=== PATIENT | male | born 1990 | race Caucasian/White ===

== ENCOUNTER 2025-01-17 07:28 | Emergency (ER) | payer OTHER ==
[2025-01-17 07:52] VITALS: RESP 18; BMI 42.7
[2025-01-17] MEDS ORDERED: METOCLOPRAMIDE HCL INJECTION 10 MG/2 ML VIAL ONE (08:52)
[2025-01-17] MEDS ORDERED: ACETAMINOPHEN INJECTION 100 ML ONE (08:53)
[2025-01-17 08:55] LABS: MCHC 32.5 g/dl (32.3-36.5); MEAN CELL VOLUME 82.9 fl (79.0-92.2); MEAN PLT VOLUME 9.7 fl (9.4-12.4); RDW 12.9 % (12.0-15.6)
[2025-01-17] MEDS: ACETAMINOPHEN 1000 MG/100 ML BAG IVPB ONE (09:00)
[2025-01-17 09:06] LABS: COCAINE, UR NEGATIVE (NEGATIVE)
[2025-01-17] MEDS: METOCLOPRAMIDE HCL INJECTION 10 MG/2 ML VIAL IVPB ONE (09:06)
[2025-01-17 09:07] LABS: METHADONE, UR NEGATIVE (NEGATIVE); OPIATES, URI NEGATIVE (NEGATIVE); PHENCYCLIDINE,URINE NEGATIVE (NEGATIVE); URINE AMPHETAMINES NEGATIVE (NEGATIVE); URINE BARBITURATES NEGATIVE (NEGATIVE); URINE BENZODIAZEPINES NEGATIVE (NEGATIVE)
[2025-01-17] MEDS: LACTATED RINGERS SOLUTION 1000 ML INFUS.BAG IV ONE (09:13)
[2025-01-17 09:23] LABS: GLUCOSE,RANDOM 117.0 mg/dL (74-106)
[2025-01-17 09:24] LABS: CO2 25.0 mmol/L (21-32); TOT PROT 7.1 g/dl (6.4-8.2)
[2025-01-17 09:26] LABS: ALK PHOS 73.0 U/L (40-150)
[2025-01-17 09:29] LABS: CREATININE 0.94 mg/dL (0.55-1.3); SGOT/AST 131.0 U/L (5-34); SGPT/ALT 85.0 U/L (0-55)
[2025-01-17 11:50] VITALS: BP 113/52; PULSE 69; TEMP 98.1
== END 2025-01-17 13:15 | disposition home or self-care (01) ==
LOC: JER 07:28
PROC: 3E033NZ Introduction of Analgesics, Hypnotics, Sedatives into Peripheral Vein, Percutaneous Approach (ICD-10-PCS; principal; 2025-01-17)
PROC: 3E033GC Introduction of Other Therapeutic Substance into Peripheral Vein, Percutaneous Approach (ICD-10-PCS; 2025-01-17)
DX: G43.909 Migraine, unspecified, not intractable, without status migrainosus (principal); R10.84 Generalized abdominal pain; R11.0 Nausea; R42 Dizziness and giddiness
CPT/HCPCS: 36415; 70450-TC; 80053; 80307; 85027; 93005; 93010; 96374; 96375; 99285-25